=== PATIENT | female | born 1955 | race Caucasian/White ===

== ENCOUNTER 2024-02-08 17:52 | Inpatient (IN) | payer MEDICARE ==
[2024-02-08 18:16] LABS: Absolute Basophils 0.1 K/uL (0-0.5); Absolute Eosinophils 0.1 K/uL (0-0.5); Absolute Monocytes 0.5 K/uL (0.1-1.3); Absolute Neutrophil 5.5 K/uL (1.8-8.0); Basophils % 1.1 % (0-1.3); Eosinophils % 0.9 % (0-4.4); Hemoglobin 13.2 g/dL (12.0-15.0); MCH 31.5 pg (27.0-35.0); MCHC 33.9 g/dL (32.0-36.0); MPV 6.6 fL (7.6-11.3); Platelets 420 thou/uL (152-406); RBC Red Blood Cell Count 4.19 M/uL (3.86-4.86); Red Cell Distribution Width 13.1 % (12.1-15.2)
[2024-02-08] MEDS ORDERED: NA CHLORIDE 0.9% 500 ML ONE ×2 (18:24→20:09)
[2024-02-08] MEDS ORDERED: MAGNESIUM SULFATE 1 gm IVPB 1 GM/100 ML BAG IV ONE (18:24)
[2024-02-08 18:55] LABS: Albumin 3.3 g/dL (3.4-5.0); Albumin/Globulin Ratio 0.8 (1.1-1.8); Anion Gap 13.2 mEq/L (5.0-15.0); Bilirubin Total 0.3 mg/dL (0.2-1.0); Globulin 4.4 g/dL (2.3-3.5); Potassium 4.2 mEq/L (3.5-5.1); Protein, Total 7.7 g/dL (6.4-8.2); Troponin High Sensitivity 4.5 pg/mL (<58.9)
--- NOTE | 2024-02-08 19:09 | RAD REPORT ---
EXAM DESCRIPTION: RAD - Chest Single View - 02/08/2024 6:53 pm CLINICAL HISTORY: AMS Chest pain. COMPARISON: <Comparisons> FINDINGS: Portable technique limits examination quality. Mildly prominent interstitial lung markings. No focal infiltrate seen. The heart is normal in size. N o displaced fractures.
--- NOTE | 2024-02-08 19:32 | RAD REPORT ---
EXAM DESCRIPTION: CT - Head Brain Wo Cont - 02/08/2024 7:22 pm CLINICAL HISTORY: hx of lung CA, mets;Confused Headache, drowsiness COMPARISON: <Comparisons> TECHNIQUE: All CT scans are performed using dose optimization technique as appropriate and may inclu de automated exposure control or mA/KV adjustment according to patient size. FINDINGS: No intracranial hemorrhage, hydrocephalus or extra-axial fluid collection.Postsurgical aram nges are seen left frontal lobe.No areas of brain edema or evidence of midline shift. The paranasal sinuses and mastoids are clear. Frontal craniotomy. IMPRESSION: No acute intracranial abnormality.
[2024-02-08 19:35] LABS: Specific Gravity 1.006 (1.005-1.030); Sqamous Epithelial <5 /HPF (None Seen); Urine Bacteria <20 /HPF (<20); Urine Bilirubin NEGATIVE (Negative); Urine Blood Negative (Negative); Urine Clarity Clear (Clear); Urine Color Colorless (Yellow); Urine Culture Reflex Order NOT NEEDED; Urine Glucose NEGATIVE (Negative); Urine Ketones NEGATIVE (Negative); Urine Microscopic Reflex YN ORDER UMIC; Urine Nitrite NEGATIVE (Negative); Urine Protein NEGATIVE (Negative); Urine RBC <5 /HPF (None Seen); Urine Urobilinogen Normal (Normal); Urine WBC <5 /HPF (<5); Urine pH 7.5 (5.0-7.0)
--- NOTE | 2024-02-08 19:46 | EDPHYS ---
Physician Documentation [facility] Name: Stefani Webb Age: 69 yrs Sex: Female : 1955 Arrival Date: 02/08/2024 Time: 17:52 Bed 17 Private MD: ED Physician Rodrick Ariza HPI: 02/07 18:04 This 69 yrs old Female presents to ER via EMS with complaints of Altered Mental Status. rn 18:04 The patient presents with confusion, decreased responsiveness. Onset: The rn symptoms/episode began/occurred at an unknown time. Possible causes: unknown. Current symptoms: In the emergency department the patient's symptoms are unchanged from the initial presentation. It is unknown whether or not the patient has had similar symptoms in the past. Per EMS, family had not seen patient in several days, had maintenance at building open her house, found her confused. No evidence of trauma or fall. Patient denies pain. Patient with known lung cancer with mets to bone and brain, and per report just started chemotherapy a week ago. Unknown hospital or treatment facility. Patient not oriented to place or time. Historical: - Allergies: 20:51 Sulfa (Sulfonamide Antibiotics); cm10 - Home Meds: 17:56 Unable to obtain [Active]; bp - PMHx: 17:56 CANCER- PRIMARY LUNG WITH METS TO BONE AND BRAIN; bp - Immunization history:: Adult Immunizations up to date. - Social history:: Smoking status: Patient denies any tobacco usage or history of. - Family history:: not pertinent. - Hospitalizations: : No recent hospitalization is reported. ROS: 18:04 Constitutional: Negative for fever, chills, and weight loss, Eyes: Negative for injury, rn pain, redness, and discharge, ENT: Negative for injury, pain, and discharge, Neck: Negative for injury, pain, and swelling, Cardiovascular: Negative for chest pain, palpitations, and edema, Respiratory: Negative for shortness of breath, cough, wheezing, and pleuritic chest pain, Abdomen/GI: Negative for abdominal pain, nausea, vomiting, diarrhea, and constipation, Back: Negative for injury and pain, : Negative for injury, bleeding, discharge, and swelling, MS/Extremity: Negative for injury and deformity, Skin: Negative for injury, rash, and discoloration, Neuro: Negative for headache, weakness, numbness, tingling, and seizure, Exam: 18:04 Constitutional: This is a well developed, well nourished patient who is awake, alert, rn and in no acute distress. Very pleasant and follows all commands but not oriented to person or place Head/Face: Normocephalic, atraumatic. Eyes: Pupils equal round and reactive to light, extra-ocular motions intact. Pupils 6 mm ENT: Dry mucous membranes, no stridor Neck: Trachea midline, no masses palpated, and no cervical lymphadenopathy. Supple, full range of motion without nuchal rigidity, or vertebral point tenderness. No Meningismus. Cardiovascular: Regular rate and rhythm. No pulse deficits. Respiratory: No increased work of breathing, no retractions or nasal flaring. Abdomen/GI: Soft, non-tender Skin: Warm, dry MS/ Extremity: Pulses equal, no cyanosis. Neurovascular intact. Full, normal range of motion. Equal circumference. Neuro: Awake and alert, GCS 15, oriented to person, not place or time. Cranial nerves II-XII grossly intact. Motor strength 5/5 in all extremities. Sensory grossly intact. Cerebellar exam normal. Vital Signs: 17:54 BP 142 / 80; Pulse 84; Resp 16; Temp 98; Pulse Ox 98% ; bp 17:56 BP 143 / 83; Pulse 84; Resp 16; Pulse Ox 99% ; bp 18:51 BP 123 / 66; Pulse 85; Resp 16; Pulse Ox 100% ; bp 21:14 Weight 63.5 kg; Height 5 ft. 1 in. ; ty 21:14 Body Mass Index 26.45 (63.50 kg, 154.94 cm) ty NIH Stroke Scale Scores: 17:56 NIHSS Score: 2 bp MDM: 17:57 Patient medically screened. rn 19:44 Differential Diagnosis: CVA, electrolyte abnormality, hypoglycemia, pneumonia, UTI, rn volume depletion, Metastasis. Data reviewed: vital signs, nurses notes, lab test result(s), radiologic studies, CT scan, plain films, and as a result, I will admit patient. Consideration of Admission/Observation Patient was admitted/placed on observation. Escalation of care including admission/observation considered. Counseling: I had a detailed discussion with the patient and/or guardian regarding the historical points, exam findings, and any diagnostic results supporting the discharge/admit diagnosis, lab results, radiology results, the need for further work-up and treatment in the hospital. ED course: No acute findings and workup. CT head shows postsurgical changes but no new masses or swelling. Patient still not completely back to baseline. Just started chemotherapy 2 weeks ago, no significant metabolic derangements. Will admit given persistent altered mental status, lives by herself, and family had to break into home just to see her.. 02/07 18:02 Order name: CBC with Diff; Complete Time: 19:23 rn 02/07 18:02 Order name: CMP; Complete Time: 19:23 rn 02/07 18:02 Order name: Urinalysis w/ reflexes; Complete Time: 19:43 rn 02/07 18:03 Order name: Troponin High Sensitivity; Complete Time: 19:23 rn 02/07 20:24 Order name: C-Reactive Protein EDMS 02/07 20:24 Order name: C-Reactive Protein EDMS 02/07 20:24 Order name: CBC with Automated Diff EDMS 02/07 20:24 Order name: CBC with Automated Diff EDMS 02/07 20:24 Order name: Comprehensive Metabolic Panel EDMS 02/07 20:24 Order name: Comprehensive Metabolic Panel EDMS 02/07 20:24 Order name: Lipid Profile EDMS 02/07 20:24 Order name: Lipid Profile EDMS 02/07 20:24 Order name: Magnesium EDMS 02/07 20:24 Order name: Magnesium EDMS 02/07 20:24 Order name: Phosphorus EDMS 02/07 20:24 Order name: Phosphorus EDMS 02/07 20:24 Order name: T4,Total EDMS 02/07 20:24 Order name: T4,Total EDMS 02/07 20:24 Order name: Thyroid Stimulating Hormone EDMS 02/07 20:24 Order name: Thyroid Stimulating Hormone EDMS 02/07 20:24 Order name: Troponin High Sensitivity EDMS 02/07 20:24 Order name: Troponin High Sensitivity EDMS 02/07 20:24 Order name: Urinalysis w/ reflexes EDMS 02/07 20:24 Order name: Urinalysis w/ reflexes EDMS 02/07 20:24 Order name: Urine Drug Screen EDMS 02/07 20:24 Order name: Urine Drug Screen EDMS 02/08 17:13 Order name: Ammonia EDMS 02/08 18:21 Order name: Acute Hepatitis Panel EDMS 02/07 18:02 Order name: CT Head Brain wo Cont; Complete Time: 19:43 rn 02/07 18:02 Order name: XRAY Chest (1 view); Complete Time: 19:23 rn 02/07 19:30 Order name: US Abdomen Limited rn 02/07 20:24 Order name: Echo with Doppler EDMT 02/07 20:24 Order name: Brain Wo Cont EDMT 02/07 20:24 Order name: MRA Head Wo Cont EDMT 02/07 20:24 Order name: Physical Therapy Consult EDMT 02/07 20:24 Order name: Speech Therapy Consult [facility] 02/07 18:02 Order name: IV Start; Complete Time: 18:06 rn 02/07 18:02 Order name: Cardiac monitoring; Complete Time: 18:06 rn 02/07 18:02 Order name: O2 Sat Monitoring; Complete Time: 18:06 rn 02/07 18:02 Order name: Glucose Level; Complete Time: 18:06 rn Administered Medications: 18:30 Drug: NS 0.9% IV 500 ml IV at bolus once Route: IV; Rate: bolus; Site: left antecubital;bp 20:23 Follow up: IV Status: Completed infusion; IV Intake: 500ml rv 18:30 Drug: Magnesium Sulfate IVPB 1 grams IVPB once over 1 hrs Route: IVPB; Infused Over: 1 bp hrs; Site: left antecubital; 20:23 Follow up: Response: No adverse reaction; IV Status: Completed infusion rv 20:22 Drug: NS 0.9% IV 500 ml IV at bolus once Route: IV; Rate: bolus; Site: left antecubital;rv 20:22 Follow up: IV Status: Infusion continued upon admission rv Disposition Summary: 02/08/24 19:45 Hospitalization Ordered Notes: Hospitalization Status: Observation rn Provider: Dante Panchal rn Condition: Stable rn Problem: new rn Symptoms: have improved rn Bed/Room Type: Standard rn Location: Telemetry/MedSurg (observation)(02/09/24 17:22) eb Room Assignment: 404(02/09/24 17:22) eb Diagnosis - Altered mental status, unspecified rn - Dehydration rn Forms: - Medication Reconciliation Form rn - SBAR form rn - Leadership Thank You Letter rn NIH Stroke Scale - NIH Stroke Score Date: 02/08/2024 Time: 17:56 Total Score = 2 10. Dysarthria (speech clarity - read or repeat words) - 0(Normal) 11. Extinction and Inattention (visual/tactile/auditory/spatial/personal) - 0(No abnormality) 1a. Level of Consciousness (LOC) - 0(Alert) 1b. Level of Consciousness (LOC) (Month \T\ Age) - 2(Neither) 1c. LOC Commands (Open \T\ Closes Eyes/Senior Science Consultant) - 0(Both) 2. Best Gaze (Lateral Gaze Paresis) - 0(Normal) 3. Visual Field Loss - 0(No visual loss) 4. Facial Palsy - 0(Normal) 5a. Left Arm: Motor (10-second hold) - 0(No drift) 5b. Right Arm: Motor (10-second hold) - 0(No drift) 6a. Left Leg: Motor (5-second hold - always test supine) - 0(No drift) 6b. Right Leg: Motor (5-second hold - always test supine) - 0(No drift) 7. Limb Ataxia (finger/nose \T\ heel/hill - test with eyes open) - 0(Absent) 8. Sensory Loss (pinprick arms/legs/face) - 0(Normal) 9. Best Language: Aphasia (description/naming/reading) - 0(No aphasia) Initials: bp Signatures: Dispatcher [employer] EDMS Rodrick Ariza MD MD rn Garcia, Cindy, RN RN Capo Espinoza, RN HÉCTOR Brianda Ramirez Ronaldo RN Mary Ramsey RN RN 10 Corrections: (The following items were deleted from the chart) 19: 19:45 Telemetry/MedSurg (observation) rn 19:56 19:45 rn 20:51 17:56 Allergies: No Known Allergies; bp cm10 02/08 17:22 02/07 19:56 BR ER HOLD eb 02/08 17:02/07 19:56 ERHOLD- eb
--- NOTE | 2024-02-08 19:46 | ER ---
Nurse's Notes [facility] Name: Stefani Webb Age: 69 yrs Sex: Female : 1955 Arrival Date: 02/08/2024 Time: 17:52 Bed 17 Private MD: Diagnosis: Altered mental status, unspecified;Dehydration Presentation: 02/07 17:54 Chief complaint: EMS states: NOT SEEN BY FAMILY FOR MX DAYS, FOUND TO BE AOx1, UNKNOWN bp LAST KNOWN NORMAL. Coronavirus screen: At this time, the client does not indicate any symptoms associated with coronavirus-19. Ebola Screen: No symptoms or risks identified at this time. Initial Sepsis Screen: Does the patient meet any 2 criteria? No. Patient's initial sepsis screen is negative. Does the patient have a suspected source of infection? No. Patient's initial sepsis screen is negative. Risk Assessment: Do you want to hurt yourself or someone else? Patient reports no desire to harm self or others. Onset of symptoms is unknown. Care prior to arrival: IV initiated. 20 GA, in the left antecubital area, Glucose check: 144. 17:54 Method Of Arrival: EMS: [facility] bp 17:54 Acuity: KHADIJAH 2 bp Triage Assessment: 17:56 General: Appears in no apparent distress. Behavior is calm, cooperative, CONFUSED. bp Pain: Denies pain. Neuro: Level of Consciousness is awake, obeys commands, confused, Oriented to person. Cardiovascular: Rhythm is sinus rhythm. Historical: - Allergies: 20:51 Sulfa (Sulfonamide Antibiotics); cm10 - Home Meds: 17:56 Unable to obtain [Active]; bp - PMHx: 17:56 CANCER- PRIMARY LUNG WITH METS TO BONE AND BRAIN; bp - Immunization history:: Adult Immunizations up to date. - Social history:: Smoking status: Patient denies any tobacco usage or history of. - Family history:: not pertinent. - Hospitalizations: : No recent hospitalization is reported. Screenin:57 [facility] ED Fall Risk Assessment (Adult) History of falling in the last 3 months, bp including since admission No falls in past 3 months (0 pts). Abuse screen: Denies threats or abuse. Denies injuries from another. Nutritional screening: No deficits noted. Tuberculosis screening: No symptoms or risk factors identified. Assessment: 17:57 General: SEE TRIAGE NOTE. PER FAMILY, PT RECENTLY BEGAN FIRST CHEMO. bp 18:51 Reassessment: No changes from previously documented assessment. Patient is alert, bp oriented x 3, equal unlabored respirations, skin warm/dry/pink. Vital Signs: 17:54 BP 142 / 80; Pulse 84; Resp 16; Temp 98; Pulse Ox 98% ; bp 17:56 BP 143 / 83; Pulse 84; Resp 16; Pulse Ox 99% ; bp 18:51 BP 123 / 66; Pulse 85; Resp 16; Pulse Ox 100% ; bp 21:14 Weight 63.5 kg; Height 5 ft. 1 in. ; ty 21:14 Body Mass Index 26.45 (63.50 kg, 154.94 cm) ty NIH Stroke Scale Scores: 17:56 NIHSS Score: 2 bp ED Course: 17:54 Patient arrived in ED. bp 17:56 Triage completed. bp 17:56 Arm band placed on. bp 17:57 Rodrick Ariza MD is Attending Physician. rn 17:57 Patient has correct armband on for positive identification. bp 17:57 Maintain EMS IV. Dressing intact. Good blood return noted. Site clean \T\ dry. Gauge \T\ bp site: 20 GA LEFT AC. 17:59 Capo Maxwell, RN is Primary Nurse. bp 18:55 XRAY Chest (1 view) In Process Unspecified. EDMS 19:24 CT Head Brain wo Cont In Process Unspecified. EDMS 19:45 Dante Panchal MD is Hospitalizing Provider. rn 19:56 US Abdomen Limited In Process Unspecified. EDMS 20:23 No provider procedures requiring assistance completed. Patient admitted, IV remains in rv place. 21:55 Report received from HÉCTOR [place]. ha1 02/08 06:47 Primary Nurse role handed off by Capo Maxwell, HÉCTOR eb 07:24 Capo Maxwell, RN is Primary Nurse. bp Administered Medications: 02/07 18:30 Drug: NS 0.9% IV 500 ml IV at bolus once Route: IV; Rate: bolus; Site: left antecubital;bp 20:23 Follow up: IV Status: Completed infusion; IV Intake: 500ml rv 18:30 Drug: Magnesium Sulfate IVPB 1 grams IVPB once over 1 hrs Route: IVPB; Infused Over: 1 bp hrs; Site: left antecubital; 20:23 Follow up: Response: No adverse reaction; IV Status: Completed infusion rv 20:22 Drug: NS 0.9% IV 500 ml IV at bolus once Route: IV; Rate: bolus; Site: left antecubital;rv 20:22 Follow up: IV Status: Infusion continued upon admission rv Medication: 17:57 VIS not applicable for this client. bp Intake: 20:23 IV: 500ml; Total: 500ml. rv Outcome: 19:45 Decision to Hospitalize by Provider. rn 20:23 Admitted to ER Hold. Please see [facility] for further documentation. rv 20:23 Condition: good 20:23 Instructed on the need for admit, 02/08 20:38 Patient left the ED. [email or web address] NIH Stroke Scale - NIH Stroke Score Date: 02/08/2024 Time: 17:56 Total Score = 2 10. Dysarthria (speech clarity - read or repeat words) - 0(Normal) 11. Extinction and Inattention (visual/tactile/auditory/spatial/personal) - 0(No abnormality) 1a. Level of Consciousness (LOC) - 0(Alert) 1b. Level of Consciousness (LOC) (Month \T\ Age) - 2(Neither) 1c. LOC Commands (Open \T\ Closes Eyes/Oil Pipe Inspector Helper) - 0(Both) 2. Best Gaze (Lateral Gaze Paresis) - 0(Normal) 3. Visual Field Loss - 0(No visual loss) 4. Facial Palsy - 0(Normal) 5a. Left Arm: Motor (10-second hold) - 0(No drift) 5b. Right Arm: Motor (10-second hold) - 0(No drift) 6a. Left Leg: Motor (5-second hold - always test supine) - 0(No drift) 6b. Right Leg: Motor (5-second hold - always test supine) - 0(No drift) 7. Limb Ataxia (finger/nose \T\ heel/hill - test with eyes open) - 0(Absent) 8. Sensory Loss (pinprick arms/legs/face) - 0(Normal) 9. Best Language: Aphasia (description/naming/reading) - 0(No aphasia) Initials: bp Signatures: Dispatcher [employer] EDMS Rodrick Ariza MD MD rn Bryson, James RN RN [id number] Capo Maxwell RN RN Brianda Ramirez Ronaldo, RN RN rv Arminda Farrell, HÉCTOR RN ha1 Mary Azul RN RN cm10 Adriel Quinones Corrections: (The following items were deleted from the chart) 02/07 20:51 17:56 Allergies: No Known Allergies; bp cm10
--- NOTE | 2024-02-08 20:12 | P.HP ---
Certification for Inpatient Patient admitted to: Inpatient With expected LOS: >2 Midnights Patient will require the following post-hospital care: None Practitioner: I am a practitioner with admitting privileges, knowledge of patient current condition, hospital course, and medical plan of care. Services: Services provided to patient in accordance with Admission requirements found in Title 42 Section 412.3 of the Code of Federal Regulations Patient History Date of Service: 02/08/24 Reason for admission: Acute CVA; Broca's aphasia History of Present Illness: Patient is a 69-year-old female with a history of squamous cell lung cancer status post craniotomy for brain lesion which she tells me was a meningioma, who presents to the ER with confusion. Patient has been following up with Dr. Patel for her chemotherapy. Patient also follows up with Dr. Lopez as her PCP, and Dr. Damico as her unmanned aircraft systems roboticist. According to patient's sister, she has not been able to get a hold of patient for the last day and a half. She went over there to check on her and she noticed that her sister was talking gibberish. She was not making any sense, so they brought her into the emergency room. In the emergency room she appeared to be altered. However, when I went to evaluate her she was awake and alert and interacting very appropriately. She was just having a hard time getting the right words to come out. When I asked her what type of brain lesion she had, she said a word that started with an "f" that was indistinguishable. When I name some brain malignancies, when I mention meningioma she started saying "yes." After her trying to help her say the word meningioma, she was able to say it without any difficulty. She was also having a hard time recalling her oncologist, but when I asked her if it was the name of our local oncologist she said yes. She also had a hard time with her unmanned aircraft systems roboticist as well, but we are able to get her to coordinate the name of her unmanned aircraft systems roboticist as well. Patient had a acute CVA affecting Broca's area. She has a right-sided facial droop as well. I had a look at her smile with the cell phone camera and when she looked at her smile she said it the right side of her face was different than her normal smile. Patient will be given aspirin and statin therapy. Will maintain good monitoring of her hemodynamics. Patient will be admitted to the hospital with an acute left MCA CVA. Patient last known well time was over 24 hours ago, and she is out of the window for tPA. Home medications list reviewed: Yes - Past Medical/Surgical History -: Squamous cell lung cancer -: Meningioma -: Craniotomy -: Lung biopsy - Family History Father Family History: Reviewed- Non-Contributory - Social History Smoking Status: Former smoker Alcohol use: No CD- Drugs: No Review of Systems 10-point ROS is otherwise unremarkable Physical Examination - Vital Signs Temperature: 98 F Blood Pressure: 160/80 Pulse: 80 Respirations: 18 Pulse Ox (%): 95 - Physical Exam General: Alert, In no apparent distress, Oriented x3 HEENT: Atraumatic, PERRLA, Mucous membr. moist/pink, EOMI, Sclerae nonicteric Neck: Supple, 2+ carotid pulse no bruit, No LAD, Without JVD or thyroid abnormality Respiratory: Clear to auscultation bilaterally, Normal air movement Cardiovascular: Regular rate/rhythm, Normal S1 S2 Gastrointestinal: Normal bowel sounds, Soft and benign, Non-distended, No tenderness Musculoskeletal: No clubbing, No swelling, No tenderness Integumentary: No rashes Neurological: Normal gait, Normal tone, Sensation intact, Normal affect, Abnormal speech, Abnormal strength (left sided facial droop), Abnormal cranial nerve function Lymphatics: No axilla or inguinal lymphadenopathy - Studies Laboratory Data (last 24 hrs) 02/08/24 02/08/24 18:08 18:08 WBC 9.20 Hgb 13.2 Hct 39.0 Plt Count 420 H Sodium 136 Potassium 4.2 BUN 13 Creatinine 0.92 Glucose 126 H Total Bilirubin 0.3 AST 50 H ALT 43 Alkaline Phosphatase 195 H Assessment & Plan - Problems (Diagnosis) (1) Acute ischemic left MCA stroke Current Visit: Yes Status: Acute (2) Broca's aphasia Current Visit: Yes Status: Acute (3) History of primary non-small cell carcinoma of left lung Current Visit: Yes Status: Acute (4) Meningioma Current Visit: Yes Status: Acute (5) H/O craniotomy Current Visit: Yes Status: Acute - Plan Plan: 1. Patient with an acute left MCA infarct affecting Broca's area and right- sided facial droop; continue with antiplatelet therapy statin therapy and neurology consultation. Unable to get an MRI of the brain at this time but will repeat CT imaging in 48 to 72 hours. Patient will need continued PT and speech therapy. Was scheduled MRI of the brain, and if we are able to get a blood bank technician and we will try to get this completed. Patient will be given permissive hypertension and will admit the patient to the general medical floor while monitoring him on telemetry. 2. History of meningioma status postcraniotomy; supportive care 3. Patient with history of squamous cell lung cancer; patient on chemotherapy. Continue with outpatient follow-up 4. GI DVT prophylaxis - Advance Directives Does patient have a Living Will: No Does patient have a Durable POA for Healthcare: No
[2024-02-08] MEDS ORDERED: ONDANSETRON 4 MG/2 ML VIAL IV PRN (20:17)
--- NOTE | 2024-02-08 20:23 | RAD REPORT ---
EXAM DESCRIPTION: US - Abdomen Exam Limited - 02/08/2024 7:54 pm CLINICAL HISTORY: elevated alk phos COMPARISON: <Comparisons> FINDINGS: The gallbladder demonstrates multiple small stones. No pericholecystic fluid or gallbladde r wall thickening. The common bile duct is enlarged measuring 9 mm. The liver demonstrates no findings of intrahepatic biliary dilatation. IMPRESSION: Cholelithiasis. Mildly dilated common duct. Followup MRCP evaluation would be recommended.
[2024-02-08] MEDS: NA CHLORIDE 0.9% 1,000 ML IV SCH (21:00)
[2024-02-08 21:11] VITALS: BMI 26.4
[2024-02-08] MEDS: ATORVASTATIN 40 MG TAB PO SCH (22:00)
[2024-02-08] MEDS ORDERED: ATORVASTATIN 40 MG TAB ONE (22:48)
[2024-02-08] MEDS ORDERED: NA CHLORIDE 0.9% 1,000 ML ONE (22:48)
[2024-02-09 01:56] LABS: Absolute Eosinophils 0.1 K/uL (0-0.5); Absolute Lymphocytes (CBC) 2.5 K/uL (0.7-4.9); Absolute Monocytes 0.3 K/uL (0.1-1.3); Absolute Neutrophil 4.3 K/uL (1.8-8.0); Basophils % 0.6 % (0-1.3); Eosinophils % 0.9 % (0-4.4); Hematocrit 37.3 % (36.0-45.0); Hemoglobin 12.8 g/dL (12.0-15.0); Lymphocytes % 34.4 % (15.3-44.8); MCH 31.5 pg (27.0-35.0); MCHC 34.3 g/dL (32.0-36.0); MPV 6.6 fL (7.6-11.3); Monocytes % 4.6 % (3.3-12.3); Neutrophils % 59.5 % (41.7-73.7); Nucleated Red Blood Cells % 0.1 % (0-0); Platelets 392 thou/uL (152-406); RBC Red Blood Cell Count 4.05 M/uL (3.86-4.86); Red Cell Distribution Width 13.6 % (12.1-15.2)
[2024-02-09 02:36] LABS: Albumin/Globulin Ratio 0.7 (1.1-1.8); Anion Gap 12.6 mEq/L (5.0-15.0); Bilirubin Total 0.4 mg/dL (0.2-1.0); C-Reactive Protein 4.41 mg/L (<3.00); Globulin 4.3 g/dL (2.3-3.5); Phosphorus 1.7 mg/dL (2.5-4.9); Protein, Total 7.3 g/dL (6.4-8.2); Thyroid Stimulating Hormone 1.16 uIU/mL (0.358-3.740); Troponin High Sensitivity 6.3 pg/mL (<58.9)
[2024-02-09 02:42] LABS: Magnesium 2.6 mg/dL (1.6-2.4); Potassium 5.6 mEq/L (3.5-5.1)
[2024-02-09] MEDS: ASPIRIN EC 81 MG TAB PO SCH (09:00)
[2024-02-09] MEDS: PNEUMOCOCCAL VACCINE 0.5 ML IMVAC ONE (09:00)
[2024-02-09] MEDS: INFLUENZA VACCINE (for 6+ mo) 0.5 ML DOSE IMVAC ONE (09:00)
[2024-02-09] MEDS: ENOXAPARIN 40 MG/0.4 ML SQ SCH (09:00)
[2024-02-09] MEDS: CLOPIDOGREL 75 MG TABLET PO SCH (09:00)
[2024-02-09] MEDS ORDERED: CLOPIDOGREL 75 MG TABLET ONE (09:14)
[2024-02-09] MEDS ORDERED: ENOXAPARIN 40 MG/0.4 ML SQ ONE (09:15)
[2024-02-09] MEDS ORDERED: ASPIRIN EC 81 MG TAB PO ONE (09:15)
[2024-02-09] MEDS ORDERED: NA CHLORIDE 0.9% 1,000 ML ONE (09:15)
--- NOTE | 2024-02-09 13:58 | P.PN ---
Subjective Date of Service: 02/09/24 Chief Complaint: Acute CVA; Broca's aphasia Pt is resting comfortably in bed. She denies any focal weakness or right facial droop. Her speech is better. No other complaints. Pt is waiting for MRI brain on Sunday. She passed swallow eval and tolerated breakfast well. Review of Systems General: Unremarkable Eyes: Unremarkable ENT: Unremarkable Respiratory: Unremarkable Cardiovascular: Unremarkable Gastrointestinal: Unremarkable Genitourinary: Unremarkable Musculoskeletal: Unremarkable Integumentary: Unremarkable Neurological: Unremarkable Lymphatics: Unremarkable Physical Examination - Vital Signs Temperature: 98.2 F Blood Pressure: 148/86 Pulse: 91 Respirations: 18 Pulse Ox (%): 96 - Physical Exam General: Alert, In no apparent distress, Oriented x3 HEENT: Atraumatic, Normocephalic Neck: Supple, 2+ carotid pulse no bruit Respiratory: Clear to auscultation bilaterally, Normal air movement Cardiovascular: No edema, Normal pulses, Regular rate/rhythm, Normal S1 S2 Capillary refill: <2 Seconds Gastrointestinal: Normal bowel sounds, Soft and benign, Non-distended Musculoskeletal: No clubbing, No swelling Integumentary: No rashes, No breakdown, No significant lesion Neurological: Normal gait, Normal speech, Normal strength at 5/5 x4 extr, Normal tone Lymphatics: No axilla or inguinal lymphadenopathy - Studies Laboratory Data (last 24 hrs) 02/08/24 02/08/24 18:08 18:08 WBC 9.20 Hgb 13.2 Hct 39.0 Plt Count 420 H Sodium 136 Potassium 4.2 BUN 13 Creatinine 0.92 Glucose 126 H Total Bilirubin 0.3 AST 50 H ALT 43 Alkaline Phosphatase 195 H Assessment And Plan - Plan Acute left MCA infarct affecting Broca's area and right-sided facial droop: resolved. Will continue aspirin and atorvastatin. Consulted neurology consultation. Will do MRI brain on Sunday or get repeat CT head in 48hrs. Continue PT and speech therapy. Will continue permissive hypertension. History of meningioma status post craniotomy: Continue supportive care History of squamous cell lung cancer: patient on chemotherapy. Continue outpatient follow-up with oncologist. Hyperkalemia: k is 5.6. Will give lokelma. Transaminitis: AST 101, ALT 46 and Alk phos 180. Will continue IVF and trend LFTs. GI ppx: protonix DVT ppx: lovenox Dispo: pending hospital course.
[2024-02-09 18:20] LABS: Hepatitis B Core IgM Nonreactive (Nonreactive); Hepatitis B surface AG Interp. Nonreactive (Nonreactive); Hepatitis C Virus Ab Nonreactive (Nonreactive)
[2024-02-09 18:21] LABS: HBsAG Nonreactive Report Report
[2024-02-09 23:06] LABS: Specific Gravity 1.014 (1.005-1.030); Sqamous Epithelial <5 /HPF (None Seen); Urine Bacteria None Seen /HPF (<20); Urine Bilirubin NEGATIVE (Negative); Urine Blood Trace (Negative); Urine Clarity Clear (Clear); Urine Color Light-Yellow (Yellow); Urine Culture Reflex Order NOT NEEDED; Urine Glucose NEGATIVE (Negative); Urine Ketones NEGATIVE (Negative); Urine Microscopic Reflex YN ORDER UMIC; Urine Mucus Slight /HPF (None Seen); Urine Nitrite NEGATIVE (Negative); Urine Protein NEGATIVE (Negative); Urine Urobilinogen Normal (Normal); Urine WBC <5 /HPF (<5); Urine WBC Clump Rare /HPF (None Seen); Urine pH 5.5 (5.0-7.0)
[2024-02-09 23:21] LABS: Barbiturates NEGATIVE (NEGATIVE); Benzodiazepines NEGATIVE (NEGATIVE); Cocaine NEGATIVE (NEGATIVE); METHAMPHETAM NEGATIVE (NEGATIVE); Methadone NEGATIVE (NEGATIVE); Opiates NEGATIVE (NEGATIVE); Phencyclidine NEGATIVE (NEGATIVE); THC Cannibis NEGATIVE (NEGATIVE)
[2024-02-10 04:39] LABS: Absolute Basophils 0.1 K/uL (0-0.5); Absolute Eosinophils 0.2 K/uL (0-0.5); Absolute Monocytes 0.6 K/uL (0.1-1.3); Absolute Neutrophil 3.1 K/uL (1.8-8.0); Basophils % 1.2 % (0-1.3); Eosinophils % 2.6 % (0-4.4); Hematocrit 36.4 % (36.0-45.0); Hemoglobin 12.3 g/dL (12.0-15.0); Lymphocytes % 43.3 % (15.3-44.8); MCH 31.5 pg (27.0-35.0); MCHC 33.7 g/dL (32.0-36.0); MCV 93.7 fL (80-100); MPV 6.9 fL (7.6-11.3); Monocytes % 8.5 % (3.3-12.3); Neutrophils % 44.4 % (41.7-73.7); Nucleated Red Blood Cells % 0.1 % (0-0); Platelets 368 thou/uL (152-406); RBC Red Blood Cell Count 3.89 M/uL (3.86-4.86); Red Cell Distribution Width 13.5 % (12.1-15.2)
[2024-02-10 04:58] LABS: Anion Gap 9.6 mEq/L (5.0-15.0); Potassium 3.6 mEq/L (3.5-5.1)
[2024-02-10] MEDS: PANTOPRAZOLE 40MG TABLET PO SCH (05:27)
[2024-02-10] MEDS: FLUTICASONE 50MCG NASAL SPRAY NAS SCH (09:00)
[2024-02-10] MEDS: HOME MED 1 EA UNK (Umeclidinium Brm/Vilanterol Tr [Anoro Ellipta 62.5-25 Mcg Inh] Blst.W.D IH SCH (09:00)
[2024-02-10] MEDS: POTASSIUM CL SA 10 MEQ TAB PO ONE (09:30)
[2024-02-10] MEDS: BUSPIRONE HCL 5 MG TABLET PO SCH (09:30)
[2024-02-10] MEDS: DULOXETINE 30 MG CAP PO SCH (09:30)
[2024-02-10] MEDS: BUPROPION HCL XL 150 MG TAB PO SCH (09:30)
[2024-02-10] MEDS: OLANZapine 2.5 MG TAB PO SCH (09:31)
[2024-02-10 10:07] LABS: Albumin/Globulin Ratio 0.8 (1.1-1.8); Bilirubin Direct 0.2 mg/dL (0-0.2); Bilirubin Indirect, Calculated 0.3 mg/dL (0.2-0.8); Bilirubin Total 0.5 mg/dL (0.2-1.0); Globulin 3.8 g/dL (2.3-3.5); Protein, Total 6.8 g/dL (6.4-8.2)
--- NOTE | 2024-02-10 11:02 | P.PN ---
Subjective Date of Service: 02/10/24 Chief Complaint: Acute CVA; Broca's aphasia Pt is resting comfortably in bed. She denies any focal weakness or right facial droop. Her speech is better. No other complaints. Pt is waiting for MRI brain on Sunday. She passed swallow eval and tolerated breakfast well. Review of Systems General: Unremarkable Eyes: Unremarkable ENT: Unremarkable Respiratory: Unremarkable Cardiovascular: Unremarkable Gastrointestinal: Unremarkable Musculoskeletal: Unremarkable Integumentary: Unremarkable Neurological: Unremarkable Lymphatics: Unremarkable Physical Examination - Vital Signs Temperature: 97.9 F Blood Pressure: 138/73 Pulse: 72 Respirations: 18 Pulse Ox (%): 97 - Physical Exam General: Alert, In no apparent distress, Oriented x3 HEENT: Atraumatic, Normocephalic, PERRLA Neck: Supple, 2+ carotid pulse no bruit, JVD not distended Respiratory: Clear to auscultation bilaterally, Normal air movement Cardiovascular: No edema, Normal pulses, Regular rate/rhythm, Normal S1 S2 Capillary refill: <2 Seconds Gastrointestinal: Normal bowel sounds, Soft and benign, Non-distended Musculoskeletal: No clubbing, No swelling Integumentary: No rashes, No breakdown Neurological: Normal speech, Normal strength at 5/5 x4 extr, Normal tone, Sensation intact, Cranial nerves 3-12 intact Lymphatics: No axilla or inguinal lymphadenopathy Assessment And Plan - Plan Acute left MCA infarct affecting Broca's area and right-sided facial droop: resolved. Will continue aspirin, plavix, and atorvastatin. Consulted neurology consultation. Will do MRI brain on Sunday or get repeat CT head in 48hrs. Continue PT and speech therapy. Will continue permissive hypertension. EKG shows NSR. History of meningioma status post craniotomy: Continue supportive care History of squamous cell lung cancer: patient on chemotherapy. Continue outpatient follow-up with oncologist. Hyperkalemia: Improved. K is 3.6 <- 5.6. Will monitor. Transaminitis: AST 101 -> 46, ALT 46 -> 36 and Alk phos 180-> 172. Ammonia level is < 15. hepatitis panel is unremarkable. Abd ultrasound shows mildly dilated common duct. Will f/u MRCP evaluation. Will continue IVF and trend LFTs. GI ppx: protonix DVT ppx: lovenox Dispo: pending hospital course.
[2024-02-10] MEDS ORDERED: SIMETHICONE 80 MG CHEWABLE TAB PO ONE (20:40)
[2024-02-10] MEDS ORDERED: lisinopriL 10 MG TAB PO SCH (20:40)
[2024-02-10] MEDS: ATORVASTATIN 40 MG TAB PO SCH (21:00)
[2024-02-10 21:50] VITALS: O2SAT 94
[2024-02-10] MEDS: ACETAMINOPHEN 500 MG TAB PO PRN (21:59)
[2024-02-11 07:14] LABS: Absolute Basophils 0.1 K/uL (0-0.5); Absolute Eosinophils 0.2 K/uL (0-0.5); Absolute Lymphocytes (CBC) 2.3 K/uL (0.7-4.9); Absolute Monocytes 0.5 K/uL (0.1-1.3); Absolute Neutrophil 3.3 K/uL (1.8-8.0); Basophils % 0.9 % (0-1.3); Eosinophils % 3.6 % (0-4.4); Hematocrit 37.2 % (36.0-45.0); Hemoglobin 12.5 g/dL (12.0-15.0); Lymphocytes % 35.7 % (15.3-44.8); MCH 31.3 pg (27.0-35.0); MCHC 33.6 g/dL (32.0-36.0); MCV 93.3 fL (80-100); MPV 6.7 fL (7.6-11.3); Monocytes % 8.2 % (3.3-12.3); Neutrophils % 51.6 % (41.7-73.7); Platelets 351 thou/uL (152-406); RBC Red Blood Cell Count 3.99 M/uL (3.86-4.86); Red Cell Distribution Width 13.8 % (12.1-15.2)
[2024-02-11 07:23] LABS: Albumin/Globulin Ratio 0.8 (1.1-1.8); Anion Gap 8.6 mEq/L (5.0-15.0); Bilirubin Direct 0.1 mg/dL (0-0.2); Bilirubin Indirect, Calculated 0.4 mg/dL (0.2-0.8); Bilirubin Total 0.5 mg/dL (0.2-1.0); Globulin 3.7 g/dL (2.3-3.5); Phosphorus 2.6 mg/dL (2.5-4.9); Potassium 3.6 mEq/L (3.5-5.1); Protein, Total 6.7 g/dL (6.4-8.2)
[2024-02-11] MEDS: FOLIC ACID 1 MG TABLET PO SCH (07:37)
[2024-02-11] MEDS: POTASSIUM CL SA 10 MEQ TAB PO ONE (09:10)
--- NOTE | 2024-02-11 09:21 | RAD REPORT ---
EXAM DESCRIPTION: MRI - Brain Wo Cont - 02/11/2024 9:10 am CLINICAL HISTORY: stroke COMPARISON: MRA Head Wo Cont dated 02/11/2024 TECHNIQUE: Sagittal T1-weighted images were obtained along with PD/heavily T2-weighted and T2-FLAIR images. Axial DWI and ADC mapping sequences were also obtained along with coronal heavily T2-weighted images were obtained. FINDINGS: Resection cavity left frontal lobe with mild surrounding gliosis which is expected. . Mild chronic small vessel ischemic changes. No mass effect or midline shift. No hydrocephalus. Small focu s of cortical T2/FLAIR hyperintensity at the posterior left frontal lobe likely sequela of a tiny rem ote cortical infarct. No acute infarcts identified. Left frontal craniotomy. Right maxillary sinus mucous retention cyst. No mastoid effusions. IMPRESSION: No acute intracranial abnormality. Prior left frontal craniotomy with left frontal lobe resection cavity. No acute infarct identified.
--- NOTE | 2024-02-11 09:42 | RAD REPORT ---
EXAM DESCRIPTION: MRI - MRA Head Wo Cont - 02/11/2024 9:10 am CLINICAL HISTORY: stroke CVA COMPARISON: No comparisons FINDINGS: 3D noncontrast [id number] MR angiography of the [place] was performed. No aneurysm, flow-limiting stenosis or vascular malformation is seen. Forward flow seen in codominant vertebral arteries. 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 Ectatic basilar tip. The visualized dural venous sinuses appear patent. IMPRESSION: No significant flow abnormality of the [place] is identified.
--- NOTE | 2024-02-11 10:59 | P.PN ---
Subjective Date of Service: 02/11/24 Chief Complaint: Acute CVA; Broca's aphasia Pt is resting comfortably in bed. She denies any focal weakness or right facial droop. Her speech is better. No other complaints. Pt is waiting for MRI brain, MRA and Echo. No other complaints. Review of Systems General: Unremarkable Eyes: Unremarkable ENT: Unremarkable Respiratory: Unremarkable Cardiovascular: Unremarkable Gastrointestinal: Unremarkable Genitourinary: Unremarkable Musculoskeletal: Unremarkable Integumentary: Unremarkable Neurological: Unremarkable Lymphatics: Unremarkable Physical Examination - Vital Signs Temperature: 98.6 F Blood Pressure: 158/83 Pulse: 85 Respirations: 14 Pulse Ox (%): 95 - Physical Exam General: Alert, In no apparent distress, Oriented x3 HEENT: Atraumatic, Normocephalic, PERRLA Neck: Supple, 2+ carotid pulse no bruit Respiratory: Clear to auscultation bilaterally, Normal air movement, Diminished Cardiovascular: No edema, Normal pulses, Regular rate/rhythm, Normal S1 S2 Capillary refill: <2 Seconds Gastrointestinal: Normal bowel sounds, Soft and benign, Non-distended Musculoskeletal: No clubbing, No swelling, No contractures Integumentary: No rashes, No breakdown Neurological: Normal gait, Normal speech Lymphatics: No axilla or inguinal lymphadenopathy Assessment And Plan - Plan Acute left MCA infarct affecting Broca's area and right-sided facial droop: resolved. Will continue aspirin, plavix, and atorvastatin. Consulted neurology consultation. Will do MRI brain, MRA and Echo today. Continue PT and speech therapy. Will continue permissive hypertension. EKG shows NSR. History of meningioma status post craniotomy: Continue supportive care History of squamous cell lung cancer: patient on chemotherapy. Continue outpatient follow-up with oncologist. Hyperkalemia: Improved. K is 3.6 <- 5.6. Will monitor. Transaminitis: AST 101 -> 46-> 35, ALT 46 -> 36-> 35 and Alk phos 180-> 172-> 179. Ammonia level is < 15. Hepatitis panel is unremarkable. Abd ultrasound shows mildly dilated common duct. Will f/u MRCP evaluation. Will continue IVF and trend LFTs. GI ppx: protonix DVT ppx: lovenox Dispo: pending hospital course.
--- NOTE | 2024-02-11 13:40 | EKG ---
Test Date: 2024-02-10 Test Time: 14:36:21 Digital Content Producer: [employer] MEASUREMENT RESULTS: Intervals: Rate: 78 NM: 138 QRSD: 72 QT: 390 QTc: 444 [place]: P: 51 NM: 138 QRS: -9 T: 51 INTERPRETIVE STATEMENTS: Normal sinus rhythm Normal ECG Compared to ECG 10/04/1994 14:40:00 No significant changes Electronically Signed On 02-11-24 13:36:41 CDT by Billy Gama
--- NOTE | 2024-02-11 17:10 | P.DS ---
Admission Date: 02/08/24 Discharge Date: 02/11/24 Disposition: ROUTINE DISCHARGE Discharge Condition: GOOD Reason for Admission: Acute CVA; Broca's aphasia Brief History of Present Illness: Patient is a 69-year-old female with a history of squamous cell lung cancer status post craniotomy for brain lesion which she tells me was a meningioma, who presents to the ER with confusion. Patient has been following up with Dr. Patel for her chemotherapy. Patient also follows up with Dr. Lopez as her PCP, and Dr. Damico as her upfitter. According to patient's sister, she has not been able to get a hold of patient for the last day and a half. She went over there to check on her and she noticed that her sister was talking gibberish. She was not making any sense, so they brought her into the emergency room. In the emergency room she appeared to be altered. However, when I went to evaluate her she was awake and alert and interacting very appropriately. She was just having a hard time getting the right words to come out. When I asked her what type of brain lesion she had, she said a word that started with an "f" that was indistinguishable. When I name some brain malignancies, when I mention meningioma she started saying "yes." After her trying to help her say the word meningioma, she was able to say it without any difficulty. She was also having a hard time recalling her oncologist, but when I asked her if it was the name of our local oncologist she said yes. She also had a hard time with her upfitter as well, but we are able to get her to coordinate the name of her upfitter as well. Patient had a acute CVA affecting Broca's area. She has a right-sided facial droop as well. I had a look at her smile with the cell phone camera and when she looked at her smile she said it the right side of her face was different than her normal smile. Patient will be given aspirin and statin therapy. Will maintain good monitoring of her hemodynamics. Patient will be admitted to the hospital with an acute left MCA CVA. Patient last known well time was over 24 hours ago, and she is out of the window for tPA. Hospital Course: Pt is a 69yo female with past medical history of squamous cell lung cancer and meningioma status post craniotomy who presented to the ER with confusion. Her sister found her in a confused state and brought her to the ER for evaluation. Pt had difficulty finding words and also right facial droop. Her symptoms were concerning for acute left MCA CVA affecting Broca's area. We admitted pt for further CVA work up and continued aspirin and statin therapy. She presented outside the tPA window. We continued permissive htn and consulted neurologist who added folic acid 1mg po daily. Hyperkalemia resolved with hydration. Lab studies showed transaminitis. We continued IVF and trended LFTs (AST 101 -> 46-> 35, ALT 46 -> 36-> 35 and Alk phos 180-> 172-> 179). Ammonia level was < 15. Hepatitis panel was unremarkable. Abd ultrasound showed mildly dilated common duct. Pt was advised to follow up with Dr. Martinez for MRCP evaluation. The symptoms resolved and pt was in NAD prior to discharge. Vital Signs/Physical Exam: Temp Pulse Resp BP Pulse Ox 97.8 F 71 16 146/79 H 97 02/11/24 12:00 02/11/24 12:00 02/11/24 12:00 02/11/24 12:00 02/11/24 12:00 Laboratory Data at Discharge: WBC 6.40 thou/uL (4.3-10.9) 02/11/24 06:50 Hgb 12.5 g/dL (12.0-15.0) 02/11/24 06:50 Hct 37.2 % (36.0-45.0) 02/11/24 06:50 Plt Count 351 thou/uL (152-406) 02/11/24 06:50 Sodium 144 mEq/L (136-145) 02/11/24 06:50 Potassium 3.6 mEq/L (3.5-5.1) 02/11/24 06:50 BUN 10 mg/dL (7-18) 02/11/24 06:50 Creatinine 0.81 mg/dL (0.55-1.02) 02/11/24 06:50 Glucose 116 mg/dL (74-106) H 02/11/24 06:50 Phosphorus 2.6 mg/dL (2.5-4.9) 02/11/24 06:50 Magnesium 2.6 mg/dL (1.6-2.4) H 02/09/24 01:44 Total Bilirubin 0.5 mg/dL (0.2-1.0) 02/11/24 06:50 AST 35 U/L (15-37) 02/11/24 06:50 ALT 35 U/L (13-56) 02/11/24 06:50 Alkaline Phosphatase 179 U/L (45-117) H 02/11/24 06:50 Triglycerides 233 mg/dL (<150) H 02/09/24 01:44 Cholesterol 148 mg/dL (<200) 02/09/24 01:44 HDL Cholesterol 46 mg/dL (40-60) 02/09/24 01:44 Cholesterol/HDL Ratio 3.22 02/09/24 01:44 Home Medications: Atorvastatin Calcium 40 mg PO BEDTIME 02/09/24 Buspirone HCl 5 mg PO TID 02/09/24 Duloxetine HCl 60 mg PO DAILY 02/09/24 Esomeprazole Magnesium 40 mg PO DAILY 02/09/24 Fluticasone [Flonase 50MCG Nasal [place]*] 1 spray IH DAILY 02/09/24 OLANZapine [Olanzapine] 5 mg PO DAILY 02/09/24 Umeclidinium Brm/Vilanterol Tr [Anoro Ellipta 62.5-25 Mcg INH] 1 inh IH DAILY 02/09/24 Zolpidem Tartrate 10 mg PO BEDTIME 02/09/24 buPROPion HCL [Wellbutrin Xl] 150 mg PO DAILY 02/09/24 Aspirin [Aspirin EC] 81 mg PO DAILY 90 Days #90 tab 02/10/24 Clopidogrel Bisulfate [Plavix*] 75 mg PO DAILY 90 Days #90 tab 02/10/24 Folic Acid 1 mg PO DAILY 30 Days #30 tab 02/10/24 New Medications: Aspirin [Aspirin EC] 81 mg PO DAILY 90 Days #90 tab Folic Acid 1 mg PO DAILY 30 Days #30 tab Clopidogrel Bisulfate [Plavix*] 75 mg PO DAILY 90 Days #90 tab Physician Discharge Instructions: Continue ad duncan activity. Take aspirin, atorvastatin, plavix, folic acid and other home meds as prescribed. Follow up with PCP and Neurology within 1 week. Come back to the ER if you notice and weakness of facial droop. Diet: AHA Activity: Ad duncan Followup: Valentin Lopez, [Primary Care Provider] -
[2024-02-11 22:20] VITALS: BP 158/83; TEMP 98.6
--- NOTE | 2024-02-12 07:12 | ECHO ---
HEIGHT: 5 ft 1 in WEIGHT: 140 lb 0 oz DATE OF STUDY: 02/11/[address]: Dante Panchal MD 2-DIMENSIONAL: YES M.MODE: YES DOPPLER: YES COLOR FLOW: YES TDS: PORTABLE: YES DEFINITY: BUBBLE STUDY: DIAGNOSIS: STROKE CARDIAC HISTORY: CATHERIZATION: NO SURGERY: NO PROSTHETIC VALVE: NO PACEMAKER: NO MEASUREMENTS (cm) DIASTOLIC (NORMALS) SYSTOLIC (NORMALS) IVSd 1.0 (0.6-1.2) LA Diam 2.3 (1.9-4.0) LVEF 67% LVIDd 3.8 (3.5-5.7) LVIDs 2.4 (2.0-3.5) %FS 36% LVPWd 1.0 (0.6-1.2) Ao Diam 2.6 (2.0-3.7) 2 DIMENSIONAL ASSESSMENT: RIGHT ATRIUM: NORMAL LEFT ATRIUM: NORMAL RIGHT VENTRICLE: NORMAL LEFT VENTRICLE: NORMAL TRICUSPID VALVE: MILD TRICUSPID REGURGITATION MITRAL VALVE: NORMAL PULMONIC VALVE: NORMAL AORTIC VALVE: NORMAL PERICARDIAL EFFUSION: NONE AORTIC ROOT: NORMAL LEFT VENTRICULAR WALL MOTION: NORMAL DOPPLER/COLOR FLOW: SEE BELOW COMMENTS: 1. NORMAL LEFT VENTRICULAR EJECTION FRACTION 60-65% WITH NORMAL WALL MOTION 2. MILD TRICUSPID REGURGITATION TECHNOLOGIST: NESTOR CURTIS
== END 2024-02-11 18:32 | disposition home or self-care (01) | DRG 65 ==
LOC: ER 17:52 → ERHOLD 20:17 → 4TH 02-09 17:28
PROVIDERS: ADMIT Hospitalist; ATTEND Hospitalist
DX: I63.9 Cerebral infarction, unspecified (principal); C34.90 Malignant neoplasm of unspecified part of unspecified bronchus or lung; C79.31 Secondary malignant neoplasm of brain; C79.51 Secondary malignant neoplasm of bone; I10 Essential (primary) hypertension; E87.5 Hyperkalemia; E86.0 Dehydration; R47.01 Aphasia; R29.810 Facial weakness; R29.702 NIHSS score 2; R74.01 Elevation of levels of liver transaminase levels; Z60.2 Problems related to living alone; Z88.2 Allergy status to sulfonamides; Z79.02 Long term (current) use of antithrombotics/antiplatelets; Z79.82 Long term (current) use of aspirin; Z79.899 Other long term (current) drug therapy; Z87.891 Personal history of nicotine dependence
CPT/HCPCS: 36415; 70450; 70544; 70551; 71045; 76705; 80048; 80053; 80061; 80074; 80076; 80307; 81001; 82140; 83735; 84100; 84436; 84443; 84484; 85025; 86140; 92523; 93005; 93306; 96365; 96366; 97161; 99211; 99214; 99285; J1650; J3475; J7030; J7040

== ENCOUNTER 2025-03-19 23:17 | Emergency (ER) | payer OTHER ==
[2025-03-20] MEDS ORDERED: FAMOTIDINE 20 MG/2 ML VIAL IV ONE (00:29)
[2025-03-20] MEDS ORDERED: THIAMINE 200 MG/2 ML INJ ONE (00:29)
[2025-03-20] MEDS ORDERED: FOLIC ACID 5 MG/ML VIAL ONE (00:29)
[2025-03-20] MEDS ORDERED: MULTIVITAMINS 10 ML VIAL (INJ) IV ONE (00:29)
[2025-03-20] MEDS ORDERED: NA CHLORIDE 0.9% 2,000 ML ONE (00:30)
[2025-03-20 00:47] LABS: Absolute Lymphocytes (CBC) 0.9 K/uL (0.7-4.9); Absolute Monocytes 1.6 K/uL (0.1-1.3); Absolute Neutrophil 13.5 K/uL (1.8-8.0); Basophils % 0.1 % (0-1.3); Eosinophils % 0.3 % (0-4.4); Hematocrit 32.9 % (36.0-45.0); Hemoglobin 11.4 g/dL (12.0-15.0); Lymphocytes % 5.9 % (15.3-44.8); MCH 32.4 pg (27.0-35.0); MCHC 34.7 g/dL (32.0-36.0); MCV 93.4 fL (80-100); MPV 7.2 fL (7.6-11.3); Monocytes % 9.7 % (3.3-12.3); Nucleated Red Blood Cells % 0.1 % (0-0); Platelets 150 thou/uL (152-406); RBC Red Blood Cell Count 3.53 M/uL (3.86-4.86); Red Cell Distribution Width 14.2 % (12.1-15.2)
[2025-03-20 01:02] LABS: Albumin 2.1 g/dL (3.4-5.0); Albumin/Globulin Ratio 0.4 (1.1-1.8); Anion Gap 13.4 mEq/L (5.0-15.0); Bilirubin Indirect, Calculated 0.3 mg/dL (0.2-0.8); Bilirubin Total 1.3 mg/dL (0.2-1.0); Globulin 4.7 g/dL (2.3-3.5); Magnesium 2.3 mg/dL (1.6-2.4); Potassium 4.4 mEq/L (3.5-5.1); Protein, Total 6.8 g/dL (6.4-8.2)
[2025-03-20 01:27] LABS: Band Neutrophils 49 % (0-1); Blood Morphology Comment NOT SEEN (NOT SEEN); Differential Total Cells Count 100; Lymphocytes 4 % (15-42); Metamyelocytes 1 % (0-0); Monocytes 3 % (0-10); Platelet Estimate ADEQ; Reactive Lymphocytes 2 %; Segmented Neutrophils 41 % (40-80); Toxic Granulation 1+
--- NOTE | 2025-03-20 03:05 | RAD REPORT ---
CLINICAL HISTORY: PAIN COMPARISON: None. TECHNIQUE: CT CHEST ABDOMEN PELVIS WITHOUT IV CONTRAST on 03/20/2025 12:47 AM CDT This exam was performed according to our departmental dose-optimization program, which includes autom ated exposure control, adjustment of the mA and/or kV according to patient size and/or use of iterative reconstruction technique. FINDINGS: Chest: The heart is normal in size. There is no pericardial effusion. Intrathoracic lymph nodes are n ot enlarged. There is no pleural effusion, pleural thickening or pneumothorax. Central airways are patent. There i s a focus of presumed scarring in the left upper lobe, although this could represent an atypical nodule measuring approximately 2 cm. This was present on the recent prior study. Abdomen: The liver is normal in appearance. There is no biliary dilatation. Gallbladder wall is moder ately thickened measuring up to 1 cm, with moderate surrounding inflammation. The pancreas and spleen are normal in appearance. The adrenal glands and kidneys are unremarkable. Abdominal aorta is moderately calcified without aneurysm. There is no free air. There is no retroperi toneal adenopathy. Pelvis: There is large amount of stool and contrast throughout the colon. Urinary bladder is unremark able. There is no free fluid. Uterus is normal in size. Appendix is normal. Skeleton: There are multiple old lateral left rib fractures. Focus of sclerosis within the L2 vertebr al body is unchanged. IMPRESSION: Suspect acute cholecystitis. Indeterminate left upper lobe pulmonary nodule. Electronically signed by: Jose Palma MD 03/20/2025 03:01 AM CDT Due to temporary technical issues with the PACS/[employer] reporting system, reports are being sim d by the in-house radiologist without review as a courtesy to ensure prompt reporting the interpreting radiologist is fully responsible for the content of the report. Transcribed Date/Time: 03/20/2025 3:05 AM
--- NOTE | 2025-03-20 03:07 | RAD REPORT ---
CLINICAL HISTORY: PAIN COMPARISON: None. TECHNIQUE: CT HEAD AND CERVICAL SPINE WITHOUT CONTRAST on 03/19/2025 11:40 PM CDT This exam was performed according to our departmental dose-optimization program, which includes autom ated exposure control, adjustment of the mA and/or kV according to patient size and/or use of iterative reconstruction technique. FINDINGS: Brain: There is no acute hemorrhage, mass effect or midline shift. There is left frontal encephalomal acia. There is no hydrocephalus. There is no significant volume loss for age. Left frontal craniotomy was performed. Orbits and globes are unremarkable. The paranasal sinuses are clear. Mastoid air cells are clear. Cervical Spine: There is no acute fracture. Alignment is anatomic. There is moderate to severe narrowing of essentially all of the cervical discs with sparing of C2-3. Vertebral body heights are preserved. Soft tissues are unremarkable. IMPRESSION: No acute postraumatic findings. Electronically signed by: Jose Palma MD 03/20/2025 03:03 AM CDT RP Due to temporary technical issues with the PACS/[employer] reporting system, reports are being sim d by the in-house radiologist without review as a courtesy to ensure prompt reporting the interpreting radiologist is fully responsible for the content of the report. Transcribed Date/Time: 03/20/2025 3:07 AM
--- NOTE | 2025-03-20 03:29 | EDPHYS ---
Physician Documentation [facility] Name: Stefani Webb Age: 70 yrs Sex: Female : 1955 Arrival Date: 03/19/2025 Time: 23:17 Bed 19 Private MD: ED Physician Yasmany Guzman HPI: 03/19 23:43 This 70 yrs old Female presents to ER via Unassigned with complaints of falls aram , weak, on chemo. 23:43 falls at home , not eating, on chemo. Details of fall: The patient fell from an upright aram position, while walking. Onset: The symptoms/episode began/occurred 1 day(s) ago. Historical: - Allergies: 03/20 00:14 Sulfa (Sulfonamide Antibiotics); kj2 - PMHx: 00:14 CANCER- PRIMARY LUNG WITH METS TO BONE AND BRAIN; kj2 - Immunization history:: Adult Immunizations unknown. - Infectious Disease History:: Denies. - Family history:: not pertinent. - Social history:: Smoking status: unknown. ROS: 03/19 23:45 Constitutional: Negative for fever, chills, and weight loss, Eyes: Negative for injury, aram pain, redness, and discharge, ENT: Negative for injury, pain, and discharge, Neck: Negative for injury, pain, and swelling, Cardiovascular: Negative for chest pain, palpitations, and edema, Respiratory: Negative for shortness of breath, cough, wheezing, and pleuritic chest pain, Abdomen/GI: Negative for abdominal pain, nausea, vomiting, diarrhea, and constipation, Back: Negative for injury and pain, : Negative for injury, bleeding, discharge, and swelling, MS/Extremity: Negative for injury and deformity, Skin: Negative for injury, rash, and discoloration, Psych: Negative for depression, anxiety, suicide ideation, homicidal ideation, and hallucinations, Allergy/Immunology: Negative for hives, rash, and allergies, Endocrine: Negative for neck swelling, polydipsia, polyuria, polyphagia, and marked weight changes, Hematologic/Lymphatic: Negative for swollen nodes, abnormal bleeding, and unusual bruising, Neuro: Positive for weakness, Exam: 23:45 Constitutional: This is a well developed, well nourished patient who is awake, alert, aram and in no acute distress. Head/Face: Normocephalic, atraumatic. Eyes: Pupils equal round and reactive to light, extra-ocular motions intact. Lids and lashes normal. Conjunctiva and sclera are non-icteric and not injected. Cornea within normal limits. Periorbital areas with no swelling, redness, or edema. ENT: Nares patent. No nasal discharge, no septal abnormalities noted. Tympanic membranes are normal and external auditory canals are clear. Oropharynx with no redness, swelling, or masses, exudates, or evidence of obstruction, uvula midline. Mucous membranes moist. Neck: Trachea midline, no thyromegaly or masses palpated, and no cervical lymphadenopathy. Supple, full range of motion without nuchal rigidity, or vertebral point tenderness. No Meningismus. Chest/axilla: Normal chest wall appearance and motion. Nontender with no deformity. No lesions are appreciated. Cardiovascular: Regular rate and rhythm with a normal S1 and S2. No gallops, murmurs, or rubs. Normal PMI, no JVD. No pulse deficits. Respiratory: Lungs have equal breath sounds bilaterally, clear to auscultation and percussion. No rales, rhonchi or wheezes noted. No increased work of breathing, no retractions or nasal flaring. Abdomen/GI: Soft, non-tender, with normal bowel sounds. No distension or tympany. No guarding or rebound. No evidence of tenderness throughout. Back: No spinal tenderness. No costovertebral tenderness. Full range of motion. Female : Normal external genitalia. MS/ Extremity: Pulses equal, no cyanosis. Neurovascular intact. Full, normal range of motion., bilateral aka Psych: Awake, alert, with orientation to person, place and time. Behavior, mood, and affect are within normal limits. 23:45 Skin: Appearance: Color: pale, Temperature: normal temperature, Moisture: normal moisture, petechiae, not noted, ecchymosis, not noted, flushing, not noted, diaphoresis is not appreciated, cellulitis, is not appreciated, 23:45 Neuro: Orientation: is normal, appropriate for stated age, no acute changes, Mentation: is normal, appropriate for stated age, no acute changes, Memory: is normal, appropriate for stated age, no acute changes, Cranial nerves: grossly normal, is grossly normal based on the patient's age, no acute changes, Cerebellar function: is grossly normal based on the patient's age, no acute changes, Motor: moves all fours, strength is normal, strength is 5/5 in all extremities, Sensation: no obvious gross deficits, appropriate no acute changes, Gait: not tested. Babinski testing is normal, seizure activity, is not displayed by the patient, 03/20 03:24 ECG was reviewed by the Attending Physician. [facility] Vital Signs: 03/19 23:40 BP 106 / 51; Pulse 90; Resp 18; Temp 98.2; Pulse Ox 93% on R/A; Weight 71.21 kg; Height kj2 5 ft. 1 in. ; 03/20 00:48 BP 119 / 74; Pulse 83; Resp 17; Pulse Ox 98% ; jj7 01:45 BP 124 / 73; Pulse 87; Resp 17; Pulse Ox 92% ; jj7 02:45 BP 111 / 61; Pulse 84; Resp 17; Pulse Ox 99% ; jj7 03:45 BP 118 / 60; Pulse 67; Resp 17; Pulse Ox 99% ; jj7 04:45 BP 101 / 59; Pulse 81; Resp 16; Pulse Ox 92% ; jj7 05:45 BP 121 / 58; Pulse 86; Resp 17; Pulse Ox 91% ; jj7 06:45 BP 119 / 58; Pulse 81; Resp 16; Pulse Ox 92% ; j7 03/19 23:40 Body Mass Index 29.66 (71.21 kg, 154.94 cm) kj2 [place] Coma Score: 03/19 23:40 Eye Response: spontaneous(4). Motor Response: obeys commands(6). Verbal Response: kj2 oriented(5). Total: 15. Trauma Score (Adult): 23:40 Eye Response: spontaneous(1); Verbal Response: oriented(1); Motor Response: obeys kj2 commands(2); Systolic BP: > 89 mm Hg(4); Respiratory Rate: 10 to 29 per min(4); [place] Score: 15; Trauma Score: 12 MDM: 23:22 Medical Screening Exam initiated [facility] 23:47 Differential Diagnosis altered mental status, sepsis, flu. Differential diagnosis: aram abrasion, closed head injury, contusion, fracture, multiple trauma, sprain, strain. Data reviewed: vital signs, nurses notes, lab test result(s), EKG, radiologic studies, CT scan, plain films. Consideration of Admission/Observation Patient was admitted/placed on observation. Escalation of care including admission/observation considered. I considered the following discharge prescriptions or medication management in the emergency department Medications were administered in the Emergency Department. See MAR. Independent interpretation of the following test(s) in the Emergency Department EKG: See my EKG interpretation above. Care significantly affected by the following chronic conditions: Cancer. 03/19 23:40 Order name: Basic Metabolic Panel; Complete Time: 02:25 [facility] 03/19 23:40 Order name: CBC with Diff; Complete Time: 02: [facility] 03/19 23:40 Order name: LFT's; Complete Time: 02: [facility] 03/19 23:40 Order name: Magnesium; Complete Time: 02: [facility] 03/19 23:40 Order name: NT PRO-BNP; Complete Time: 02: [facility] 03/19 23:40 Order name: Troponin HS; Complete Time: 02: [facility] 03/19 23:40 Order name: Lipase; Complete Time: 02: [facility] 03/19 23:40 Order name: UA Rfx Master Cult if indicated; Complete Time: 22:30 [facility] 03/19 23:43 Order name: CPK; Complete Time: 02:25 [facility] 03/20 00:50 Order name: Manual Differential; Complete Time: 02:25 [facility] 03/20 01:03 Order name: Lactate w/ 2H reflex if indic.; Complete Time: 22:30 [facility] 03/20 01:03 Order name: Blood Culture Adult (2) [facility] 03/20 04:34 Order name: Ghost Lactate-NO COLLECT Timer; Complete Time: 22:30 [facility] 03/19 23:40 Order name: XRAY Chest (1 view); Complete Time: 22:30 [facility] 03/19 23:40 Order name: US Extremity Venous W Compression Julián; Complete Time: 22:30 [facility] 03/20 00:50 Order name: Head C Spine Mpr Wo Con; Complete Time: 22:30 [facility] 03/20 01:58 Order name: Chest Abd Pelvis Wo Con; Complete Time: 22:30 [facility] 03/20 02:33 Order name: US Abdomen Limited; Complete Time: 22:30 [facility] 03/19 23:40 Order name: Cardiac monitoring; Complete Time: 00:47 [facility] 03/19 23:40 Order name: EKG - Nurse/Tech; Complete Time: 04:30 [facility] 03/19 23:40 Order name: IV Saline Lock; Complete Time: 00:47 [facility] 03/19 23:40 Order name: Labs collected and sent; Complete Time: 00:41 [facility] 03/19 23:40 Order name: O2 Per Protocol; Complete Time: 00:41 [facility] 03/19 23:40 Order name: O2 Sat Monitoring; Complete Time: 00:41 [facility] 03/20 03:02 Order name: [facility]; Complete Time: 04:26 [facility] EC/09 03:24 Rate is 84 beats/min. Rhythm is regular. QRS [place] is Normal. [place] interval is normal. QRS aram interval is normal. QT interval is normal. No Q waves. T waves are Normal. No ST changes noted. Clinical impression: Normal ECG and No evidence of ischemia. Interpreted by me. Reviewed by me. Administered Medications: 03/19 23:49 CANCELLED (Duplicate Order): [id number] mg PO once [facility] 03/20 00:42 Drug: Famotidine IVP 20 mg IVP once; dilute with 10 mL 0.9% NaCl; give over 2 minutes j Route: IVP; Site: right antecubital; 04:55 Follow up: Response: Marked relief of symptoms 00:45 Drug: NS 0.9% IV 1000 ml IV at 1000 ml once; to be given as a bolus over 60 minutes j7 Route: IV; Rate: 1000 ml; Site: right antecubital; 01:50 Follow up: IV Status: Completed infusion j7 00:45 Drug: Banana Bag - (Multivitamin IV 1 amp, NS 0.9% IV 1000 ml, Thiamine IV 100 mg, jj7 foLIC Acid IVPB 1 mg) IV at 500 ml/hr once Route: IV; Rate: 500 ml/hr; Site: right antecubital; 02:50 Follow up: IV Status: Completed infusion j7 04:13 CANCELLED (Duplicate Order): meropenem1 grams IV at per protocol once; (mix in NS 100 aram mL) 04:55 Drug: Piperacillin-Tazobactam IVPB 3.375 grams IVPB once over 60 mins; (mix in NS 100 jj7 mL) Route: IVPB; Infused Over: 60 mins; Site: left antecubital; 06:00 Follow up: IV Status: Completed infusion jj7 04:55 Drug: D5W IV 1000 ml, Sodium Bicarbonate IVP 100 mEq IV at 150 ml/hr continuous Route: jj7 IV; Rate: 150 ml/hr; Site: right antecubital; 07:23 Follow up: IV Status: Infusion continued upon transfer jj7 05:41 Not Given (Physician Discretion; ALREADY GOT 2 LITERSs): ns 0.9% (30 ml/kg) 30 ml/kg IV jj7 at bolus once; Sepsis Protocol; to be given as a bolus over 90 minutes Disposition Summary: 03/20/25 03:28 Transfer Ordered Notes: Transfer Location: [facility] aram Reason: Higher level of care aram Condition: Fair aram Problem: new aram Symptoms: have improved aram Accepting Physician: TO MEDICINE, TELE(03/20/25 07:14) jj7 Diagnosis - Abdominal pain, Generalized aram - Cholecystitis, unspecified aram - Other cholelithiasis with obstruction aram - Elevated white blood cell count aram - Non ST elevation SD aram - Acute kidney failure, unspecified aram - Bandemia aram - Rhabdomyolysis aram - Malignant neoplasm of upper lobe, left bronchus or lung - SMALL CELL, ON aram CHEMOTHERAPY - Severe sepsis without septic shock aram Forms: - Medication Reconciliation Form aram - SBAR form aram Signatures: Dispatcher [employer] EDMS Yasmany Guzman MD MD cha Sims, Marcus, DO DO ms3 Liliana Soriano, RN RN jj7 Teresa Hua, RN RN kj2 Corrections: (The following items were deleted from the chart) 03/19 23:41 23:40 BASIC METABOLIC PANEL+C.LAB.BRZ ordered. EDMS EDMS 23:41 23:40 CBC+H.LAB.BRZ ordered. EDMS EDMS 23:41 23:40 HEPATIC FUNCTION+C.LAB.BRZ ordered. EDMS EDMS 23:41 23:40 MAGNESIUM+C.LAB.BRZ ordered. EDMS EDMS 23:41 23:40 PROBNP+C.LAB.BRZ ordered. EDMS EDMS 23:41 23:40 PROTIME (+INR)+COAG.LAB.BRZ ordered. EDMS EDMS 23:41 23:40 Troponin High Sensitivity+C.LAB.BRZ ordered. EDMS EDMS 23:41 23:40 LIPASE+C.LAB.BRZ ordered. EDMS EDMS 23:41 23:40 UA Rfx Master Cult if indicated+U.LAB.BRZ ordered. EDMS EDMS 23:41 23:41 Chest Single View+RAD.RAD.BRZ ordered. EDMS EDMS 23:41 23:41 Head C Spine CAP W Con+CT.RAD.BRZ ordered. EDMS EDMS 23:41 23:41 Extrem Venous W Compression Julián+US.RAD.BRZ ordered. EDMS EDMS 23:49 23:49 Famotidine PO 10 mg PO once ordered. [facility] 03/20 01:04 01:04 LACTATE+C.LAB.BRZ ordered. EDMS EDMS 01:04 01:04 BLOOD CULTURE*+BA.LAB.BRZ ordered. EDMS EDMS 01:58 00:49 Chest Abdomen Pelvis W Cont ordered. EDMS EDMS 03:35 03:28 TO MEDICINE, [facility] 03:37 03:35 TO MEDICINE, [facility] 04:13 01:03 Meropenem IV 1 grams IV at per protocol once; (mix in NS 100 mL) [facility]. [facility] 04:33 03:37 TO MEDICINE, [facility] 07:14 04:33 TO MEDICINE, [facility] jj7
--- NOTE | 2025-03-20 03:29 | ER ---
Nurse's Notes [facility] Name: Stefani Webb Age: 70 yrs Sex: Female : 1955 Arrival Date: 03/19/2025 Time: 23:17 Bed 19 Private MD: Diagnosis: Abdominal pain, Generalized;Cholecystitis, unspecified;Other cholelithiasis with obstruction;Elevated white blood cell count;Non ST elevation [place];Acute kidney failure, unspecified;Bandemia;Rhabdomyolysis;Malignant neoplasm of upper lobe, left bronchus or lung-SMALL CELL, ON CHEMOTHERAPY;Severe sepsis without septic shock Presentation: 03/19 23:40 Chief complaint: EMS states: weakness, multiple falls. Care prior to arrival: None. kj2 Mechanism of Injury: Fall an unknown distance. Trauma event details: Injury occurred: at home. Injury occurred: March 19, 2025. 23:40 Acuity: KHADIJAH 3 kj2 23:40 Method Of Arrival: EMS: [facility] kj2 23:40 Coronavirus screen: Client denies travel out of the [place] in the last 14 days. Ebola kj2 Screen: No symptoms or risks identified at this time. Initial Sepsis Screen: Does the patient meet any 2 criteria? No. Patient's initial sepsis screen is negative. Does the patient have a suspected source of infection? No. Patient's initial sepsis screen is negative. Risk Assessment: Do you want to hurt yourself or someone else? Patient reports no desire to harm self or others. 03/20 00:15 Onset of symptoms was March 19, 2025. kj2 Historical: - Allergies: 00:14 Sulfa (Sulfonamide Antibiotics); kj2 - PMHx: 00:14 CANCER- PRIMARY LUNG WITH METS TO BONE AND BRAIN; kj2 - Immunization history:: Adult Immunizations unknown. - Infectious Disease History:: Denies. - Family history:: not pertinent. - Social history:: Smoking status: unknown. Screenin/08 23:40 [facility] ED Fall Risk Assessment (Adult) History of falling in the last 3 months, kj2 including since admission No falls in past 3 months (0 pts) Confusion or Disorientation No (0 pts) Intoxicated or Sedated No (0 pts) Impaired Gait Yes (1 pt) Mobility Assist Device Used Yes (1 pt) Altered Elimination No (0 pt) Score/Fall Risk Level 0 - 2 = Low Risk Maintained a safe environment, Hourly rounding (assess needs \T\ fall precautionary measures) done. Abuse screen: Denies threats or abuse. Denies injuries from another. Nutritional screening: No deficits noted. Tuberculosis screening: No symptoms or risk factors identified. Primary Survey: 23:40 NO uncontrolled hemorrhage observed. Breathing/Chest: Spontaneous respiratory effort, kj2 equal unlabored respirations, breath sounds clear bilaterally, regular pattern, symmetrical chest rise and fall. Respiratory effort: spontaneous, Breath sounds: clear, bilaterally. Respiratory pattern: regular, Chest inspection: symmetrical rise and fall of the chest. Circulation: No external hemorrhage present. Regular and strong central pulse, skin warm/dry/normal color. Disability Pupils are equal, round, reactive to light and accommodation. Exposure/Environment: All clothing and personal items were removed. Forensic evidence collection is not deemed to be indicated at this time. Items placed in patient belonging bag. 23:40 Reassessment Breathing: Spontaneous respiratory effort, equal unlabored respirations, kj2 breath sounds clear bilaterally, regular pattern with symmetrical chest rise and fall. Circulation: No external hemorrhage noted. Regular and strong central pulse, skin warm/dry/normal color. Disability: Pupils Pupils are equal, round, reactive to light and accomodation. Secondary Survey: 23:40 HEENT: No deficits noted. Gastrointestinal: No deficits noted. : No deficits noted. kj2 Assessment: 23:40 General: Appears in no apparent distress. Behavior is calm, cooperative. Pain: kj2 Complains of pain in left hip Pain currently is 5 out of 10 on a pain scale. Neuro: Level of Consciousness is awake, alert, obeys commands, Oriented to person, place, time, situation. Cardiovascular: Patient's skin is warm and dry. Respiratory: Airway is patent Respiratory effort is even, unlabored. GI: No signs and/or symptoms were reported involving the gastrointestinal system. : No signs and/or symptoms were reported regarding the genitourinary system. 03/20 00:48 Reassessment: ASSUMED CARE OF PT. PT SITTING IN BED. NO DISTRESS NOTED. ORDERED MEDS jj7 GIVEN. VS STABLE. FAMILY AT BESIDE. CALL CHRISTINE IN REACH. 02:00 Reassessment: Patient and/or family updated on plan of care and expected duration. Pain jj7 level reassessed. Patient is alert, oriented x 3, equal unlabored respirations, skin warm/dry/pink. General: Appears in no apparent distress. comfortable, Behavior is calm, cooperative, appropriate for age. 04:29 Reassessment: No changes from previously documented assessment. jj7 05:30 Reassessment: Patient and/or family updated on plan of care and expected duration. Pain jj7 level reassessed. Patient is alert, oriented x 3, equal unlabored respirations, skin warm/dry/pink. 06:30 Reassessment: No changes from previously documented assessment. jj7 06:45 Reassessment: ATTEMPTED REPORT TO [facility] NO ANSWER. jj7 06:58 Reassessment: [facility] AT BEDSIDE TO TRANSFER PT. jj7 07:22 Reassessment: REPORT GIVEN TO YOGESH ANAYA AT [facility]. jj7 Vital Signs: 03/19 23:40 BP 106 / 51; Pulse 90; Resp 18; Temp 98.2; Pulse Ox 93% on R/A; Weight 71.21 kg; Height kj2 5 ft. 1 in. ; 03/20 00:48 BP 119 / 74; Pulse 83; Resp 17; Pulse Ox 98% ; jj7 01:45 BP 124 / 73; Pulse 87; Resp 17; Pulse Ox 92% ; jj7 02:45 BP 111 / 61; Pulse 84; Resp 17; Pulse Ox 99% ; jj7 03:45 BP 118 / 60; Pulse 67; Resp 17; Pulse Ox 99% ; jj7 04:45 BP 101 / 59; Pulse 81; Resp 16; Pulse Ox 92% ; jj7 05:45 BP 121 / 58; Pulse 86; Resp 17; Pulse Ox 91% ; jj7 06:45 BP 119 / 58; Pulse 81; Resp 16; Pulse Ox 92% ; jj7 03/19 23:40 Body Mass Index 29.66 (71.21 kg, 154.94 cm) kj2 [place] Coma Score: 03/19 23:40 Eye Response: spontaneous(4). Motor Response: obeys commands(6). Verbal Response: kj2 oriented(5). Total: 15. Trauma Score (Adult): 23:40 Eye Response: spontaneous(1); Verbal Response: oriented(1); Motor Response: obeys kj2 commands(2); Systolic BP: > 89 mm Hg(4); Respiratory Rate: 10 to 29 per min(4); [place] Score: 15; Trauma Score: 12 ED Course: 23:21 Patient arrived in ED. vc1 23:22 Yasmany Guzman MD is Attending Physician. aram 23:40 Arm band placed on Patient placed in an exam room, on a stretcher. kj2 23:40 Patient has correct armband on for positive identification. Bed in low position. Call kj2 light in reach. Provided Education on: call light. 23:40 No provider procedures requiring assistance completed. kj2 03/20 00:00 XRAY Chest (1 view) In Process Unspecified. EDMS 00:00 Teresa Hua, RN is Primary Nurse. kj2 00:04 Triage completed. kj2 00:15 Patient maintains SpO2 saturation greater than 95% on room air. kj2 00:15 Inserted saline lock: 20 gauge in right antecubital area, using aseptic technique. kj2 Blood collected. Flushed with 10 mL NS. 00:45 Report given to HÉCTOR STORM. kj2 01:14 US Extremity Venous W Compression Julián In Process Unspecified. EDMS 01:58 Chest Abd Pelvis Wo Con In Process Unspecified. EDMS 01:59 Head C Spine Mpr Wo Con In Process Unspecified. EDMS 03:00 US Abdomen Limited In Process Unspecified. EDMS 04:15 [facility] cath inserted, using sterile technique, 16 Fr., by dc, balloon inflated, to jj7 gravity drainage, urine specimen collected. returned clear yellow urine. Patient tolerated well. 04:22 Inserted saline lock: 22 gauge in left antecubital area, using aseptic technique. Blood oe collected. Flushed with 10 mL NS. 04:22 Blood Culture Adult (2) Sent. oe 04:22 Lactate w/ 2H reflex if indic. Sent. oe 06:11 Door closed. Warm blanket given. Repositioned patient. Cleaned of incontinence. Linen jj7 changed. 07:00 Patient transferred, IV remains in place. jj7 Administered Medications: 03/19 23:49 CANCELLED (Duplicate Order): [id number] mg PO once aram 03/20 00:42 Drug: Famotidine IVP 20 mg IVP once; dilute with 10 mL 0.9% NaCl; give over 2 minutes jj7 Route: IVP; Site: right antecubital; 04:55 Follow up: Response: Marked relief of symptoms jj 00:45 Drug: NS 0.9% IV 1000 ml IV at 1000 ml once; to be given as a bolus over 60 minutes jj7 Route: IV; Rate: 1000 ml; Site: right antecubital; 01:50 Follow up: IV Status: Completed infusion j7 00:45 Drug: Banana Bag - (Multivitamin IV 1 amp, NS 0.9% IV 1000 ml, Thiamine IV 100 mg, jj7 foLIC Acid IVPB 1 mg) IV at 500 ml/hr once Route: IV; Rate: 500 ml/hr; Site: right antecubital; 02:50 Follow up: IV Status: Completed infusion j7 04:13 CANCELLED (Duplicate Order): meropenem1 grams IV at per protocol once; (mix in NS 100 aram mL) 04:55 Drug: Piperacillin-Tazobactam IVPB 3.375 grams IVPB once over 60 mins; (mix in NS 100 jj7 mL) Route: IVPB; Infused Over: 60 mins; Site: left antecubital; 06:00 Follow up: IV Status: Completed infusion j7 04:55 Drug: D5W IV 1000 ml, Sodium Bicarbonate IVP 100 mEq IV at 150 ml/hr continuous Route: jj7 IV; Rate: 150 ml/hr; Site: right antecubital; 07:23 Follow up: IV Status: Infusion continued upon transfer jj7 05:41 Not Given (Physician Discretion; ALREADY GOT 2 LITERSs): ns 0.9% (30 ml/kg) 30 ml/kg IV jj7 at bolus once; Sepsis Protocol; to be given as a bolus over 90 minutes Medication: 03/19 23:40 VIS not applicable for this client. kj2 Outcome: 03/20 03:28 ER care complete, transfer ordered by . aram 06:59 Transferred by [facility] to [facility], Transfer form jj7 completed. X-rays sent w/ patient. 06:59 Condition: good 07:00 Patient left the ED. jj7 Signatures: Dispatcher [employer] EDMS Yasmany Guzman MD MD cha Espinosa, Orlando oe Calcote, Vanessa, RN RN vc1 Liliana Soriano RN RN jj7 Teresa Hua RN RN kj2 Corrections: (The following items were deleted from the chart) 06:47 06:45 BP 126 / 76; Pulse 79bpm; Resp 16bpm; Pulse Ox 100%; jj7 jj7 07:15 07:14 Patient left the ED. jj7 jj7
--- NOTE | 2025-03-20 03:40 | RAD REPORT ---
EXAM: Extrem Venous W Compress Julián US Bilateral Lower Extremity Venous Duplex Doppler HISTORY: Pain, Swelling COMPARISON: None TECHNIQUE: Grayscale, color Doppler, duplex Doppler, spectral Doppler images and analysis with compre ssion and augmentation of right and left lower extremity veins. FINDINGS: Right and Left common femoral, greater saphenous, femoral, deep (profunda) femoral, popliteal, turbo electric operator ior tibial veins unremarkable without evidence of clot. 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 IMPRESSION: No sonographic evidence of right or left lower extremity DVT. Electronically signed by: Law Hay MD 03/20/2025 01:45 AM CDT RP Due to temporary technical issues with the [employer] reporting system, reports are being sim d by the in-house radiologist without review as a courtesy to ensure prompt reporting the interpreting radiologist is fully responsible for the content of the report. Transcribed Date/Time: 03/20/2025 3:40 AM
[2025-03-20] MEDS ORDERED: NA CHLORIDE 0.9% 100 ML ONE (04:36)
[2025-03-20] MEDS ORDERED: PIPERACIL/TAZO 3.375 GM VIAL IV ONE (04:37)
[2025-03-20] MEDS ORDERED: D5W 1,000 ML IV ONE (04:38)
[2025-03-20 04:51] LABS: Specific Gravity 1.005 (1.005-1.030); Sqamous Epithelial <5 /HPF (None Seen); Urine Bacteria <20 /HPF (<20); Urine Bilirubin NEGATIVE (Negative); Urine Blood 3+ (OVER) (Negative); Urine Clarity Turbid (Clear); Urine Color Light-Yellow (Yellow); Urine Culture Reflex Order NOT NEEDED; Urine Glucose NEGATIVE (Negative); Urine Ketones NEGATIVE (Negative); Urine Microscopic Reflex YN ORDER UMIC; Urine Mucus Slight /HPF (None Seen); Urine Nitrite NEGATIVE (Negative); Urine Protein 1+ (Negative); Urine RBC <5 /HPF (None Seen); Urine Urobilinogen Normal (Normal); Urine WBC <5 /HPF (<5); Urine pH 6.5 (5.0-7.0)
--- NOTE | 2025-03-20 05:33 | RAD REPORT ---
EXAM DESCRIPTION: XR CHEST 1 VIEW 03/20/2025 12:18 AM CDT CLINICAL HISTORY: 70 years, Female, Cough. COMPARISON: CT Chest Abdomen Pelvis 03/13/2025 and XR Chest 02/08/2024. FINDINGS: 1 view of the chest (AP portable projection) was obtained. No prior films are available at this [facility] for comparison. There is normal lung volume. Mediastinum: The cardiomediastinal silhouette appears normal in size and shape. Lungs: There is increase interstitial densities throughout the lungs and lower lungs suggesting the p ossibility of interstitial lung disease such as UIP IPF versus viral pneumonia and/or less likely early interstitial pulmonary edema. Heart: The heart is normal in size. Thoracic aorta: The thoracic aorta demonstrate to be normal. Pulmonary vasculature: The pulmonary vasculature is normal in distribution. Pleura: The costophrenic angles demonstrate to be sharp. Mild elevation right hemidiaphragm. Osseous structures: The bony structures demonstrate very minimal early degenerative changes bilateral glenohumeral joints. Other: None. IMPRESSION: Increased interstitial densities throughout the lungs and lower lungs suggesting the possibility of i nterstitial lung disease such as UIP IPF versus viral pneumonia versus less likely early interstitial pulmonary edema. Electronically signed by: Frederick Cullen MD 03/20/2025 12:28 AM CDT Due to temporary technical issues with the [employer]ACS/[employer] reporting system, reports are being sim d by the in-house radiologist without review as a courtesy to ensure prompt reporting the interpreting radiologist is fully responsible for the content of the report. Transcribed Date/Time: 03/20/2025 5:33 AM
--- NOTE | 2025-03-20 06:07 | RAD REPORT ---
Abdomen Exam Limited: 03/20/2025 2:58 AM CLINICAL HISTORY: ABD PAIN STUDY: Limited right upper quadrant ultrasound of abdomen. COMPARISON: Same day CT FINDINGS: Liver: Limited evaluation. Hepatic steatosis noted. Bile ducts: No intrahepatic or extrahepatic biliary ductal dilatation. Common bile duct measures 4 mm. Gallbladder: Distended gallbladder with gallbladder wall thickening, sludge, and stones. Trace perich olecystic fluid. Sonographic Pruitt sign was not reported however the patient did receive pain medication. IMPRESSION: Distended gallbladder with wall thickening, pericholecystic fluid, and stones which is suspicious for acute cholecystitis. No sonographic Pruitt's sign however the patient had received pain medication.
[2025-03-20 07:43] VITALS: TEMP 98.2
[2025-03-20 07:51] VITALS: BP 119/58; O2SAT 92
--- NOTE | 2025-03-23 12:08 | EKG ---
Test Date: 2025-03-20 Test Time: 02:58:54 Machine Folder: TANMAY MEASUREMENT RESULTS: Intervals: Rate: 84 MT: 166 QRSD: 92 QT: 386 QTc: 456 [place]: P: 59 MT: 166 QRS: 4 T: 46 INTERPRETIVE STATEMENTS: Normal sinus rhythm Normal ECG Compared to ECG 02/10/2024 14:36:21 No significant changes Electronically Signed On 03-23-25 12:06:11 CDT by Young Torrez
== END 2025-03-20 07:14 | disposition short-term general hospital (02) ==
LOC: ER 23:17
DX: I21.4 Non-ST elevation (NSTEMI) myocardial infarction (principal); R65.20 Severe sepsis without septic shock; K80.19 Calculus of gallbladder with other cholecystitis with obstruction; N17.9 Acute kidney failure, unspecified; C34.12 Malignant neoplasm of upper lobe, left bronchus or lung; M62.82 Rhabdomyolysis; D72.825 Bandemia; R10.84 Generalized abdominal pain; C79.51 Secondary malignant neoplasm of bone; C79.31 Secondary malignant neoplasm of brain; W18.30XA Fall on same level, unspecified, initial encounter
CPT/HCPCS: 93005; 87040 ×2; 85025; 81001; 80048; 83735; 82550; 87205 ×4; 80076; 83605; 87077 ×2; 87186 ×2; 84484; 83690; 83880; 70450; 71250; 72125; 74176; 71045; 93970; 76705; 51702; 99285; J3411; J2543; J7030